=== PATIENT | male | born 1995 | race Caucasian/White ===

== ENCOUNTER → 2016-04-26 | Outpatient (CLI) | payer OTHER ==
--- NOTE | 2016-04-26 13:35 | MAMMOGRAPHY REPORT ---
MALE BILATERAL DIGITAL DIAGNOSTIC MAMMOGRAM TOMOSYNTHESIS WITH CAD AND TARGETED BILATERAL ULTRASOUND : 04/26/2016 CLINICAL HISTORY: 20-year-old male presents with a palpable lump in the subareolar right breast. No fevers, chills, skin changes or nipple discharge. No family history of breast cancer. TECHNIQUE: Bilateral breast tomosynthesis in addition to standard 2D mammography was performed. Curr ent study was also evaluated with a Computer Aided Detection (CAD) system. COMPARISON: No prior exams were available for comparison. BREAST COMPOSITION: The breast parenchyma is nearly entirely fat. FINDINGS: A triangular skin palpable marker overlies the area of palpable concern in the 12:00 nova areolar right breast. There is breast tissue development in the retroareolar right breast, in the a ting of palpable concern. No significant glandular tissue is seen in the left breast. No suspicious mass, architectural distortion or cluster of microcalcifications is seen. Targeted ultrasound was performed in the subareolar aspect of each breast in the 12:00 periareolar r ight breast in the area of palpable lump pointed out by the patient. There is a hypoechoic mount of glandular tissue in the retroareolar right breast correlating as palpated. This is compatible with gynecomastia. No suspicious solid or cystic mass is seen. No significant breast tissue developmen t is seen in the left retroareolar breast. IMPRESSION: ACR BI-RADS CATEGORY 2: BENIGN, TARGETED ULTRASOUND ACR BI-RADS CATEGORY 2: BENIGN There is right gynecomastia, correlating with the palpable lump identified by the patient. There is no mammographic or targeted sonographic evidence of malignancy. Clinical follow-up is recommended as to possible underlying cause. The patient has been verbally notified of the results. Approximately 10% of breast cancers are not detected with mammography. A negative mammographic repor t should not delay biopsy if a clinically suggestive mass is present. Brandy Groves M.D. ay/:04/26/2016 09:17:28 Analytical Chemistry Teacher: Nahomi ENCARNACION)([place]), [facility] letter sent: Normal 1/2 BI-RADS Code: ACR BI-RADS Category 2: Benign Ultrasound BI-RADS: ACR BI-RADS Category 2: Benign
== END | disposition home or self-care (01) ==
LOC: C.MAMM 08:05
PROVIDERS: ATTEND Nurse Practitioner
DX: N63 Unspecified lump in breast (principal); N62 Hypertrophy of breast